=== PATIENT | female | born 1965 | race Caucasian/White ===

== ENCOUNTER 2018-10-04 20:35 | Emergency (ER) | payer OTHER ==
[~2018-10-04] VITALS: Ht 157.5 cm; Wt 83.9 kg
[~2018-10-04 20:35] MED LIST: ASPI-605 PO; ATOR10TA PO; FERR325T24 PO; GEMF600T5 PO
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
[2018-10-04] MEDS: IBUPROFEN 800 MG TABLET PO ONE (23:56)
[2018-10-04] MEDS ORDERED: IBUPROFEN 800 MG TABLET ONE (23:57)
--- NOTE | 2018-10-05 01:12 | NUR ---
Patient discharged to home in stable conditon. Written and verbal after care instructions given. Patient verbalizes understanding of instructions. Pt ambulated out of ER in stable gait. All belongings w pt. VSS. NAD noted.
[2018-10-05 01:13] VITALS: BP 146/72
== END 2018-10-05 01:13 | disposition home or self-care (01) ==
LOC: ER 20:35
DX: S06.0X0A Concussion without loss of consciousness, initial encounter (principal); S16.1XXA Strain of muscle, fascia and tendon at neck level, initial encounter; S39.012A Strain of muscle, fascia and tendon of lower back, initial encounter; E78.5 Hyperlipidemia, unspecified; Z79.82 Long term (current) use of aspirin; Z79.899 Other long term (current) drug therapy; V49.49XA Driver injured in collision with other motor vehicles in traffic accident, initial encounter; Y93.89 Activity, other specified; Y92.410 Unspecified street and highway as the place of occurrence of the external cause; Y99.8 Other external cause status
CPT/HCPCS: 70450; 71045; 72125; 72131; 72192; A4663